=== PATIENT | male | born 2000 | race Caucasian/White ===

== ENCOUNTER 2023-01-01 21:44 | Emergency (ER) | payer MEDICAID ==
[~2023-01-01] VITALS: Ht 180.3 cm; Wt 79.4 kg
[2023-01-01 21:55] VITALS: BP 160/88; PULSE 90; RESP 18; TEMP 97.4; O2SAT 100
[2023-01-01 22:11] VITALS: BP 122/75; PULSE 79; RESP 15
[2023-01-01 22:36] VITALS: O2SAT 96
[2023-01-01 22:57] LABS: BASOPHILS # (AUTO) 0.1 K/uL (0.00-0.22); BASOPHILS % (AUTO) 0.8 % (0.0-2.0); EOSINOPHILS # (AUTO) 0.2 K/uL (0-0.4); HEMOGLOBIN 15.1 g/dL (12.0-18.0); LYMPHOCYTES # (AUTO) 1.8 K/uL (2.0-11.5); LYMPHOCYTES % (AUTO) 25.9 % (20.5-51.1); MEAN CORPUSCULAR HEMOGLOBIN 31 pg (27-31); MEAN CORPUSCULAR HGB CONC 34 g/dL (33-37); MEAN CORPUSCULAR VOLUME 90.4 fL (80-94); MONOCYTES # (AUTO) 0.7 K/uL (0.8-1.0); MONOCYTES % (AUTO) 9.6 % (1.7-9.3); NEUTROPHILS # (AUTO) 4.1 K/uL (1.8-7.7); NEUTROPHILS % (AUTO) 60.7 % (42.2-75.2); PLATELET COUNT (AUTO) 246 K/uL (140-450); RED BLOOD CELL COUNT(AUTO) 4.86 MIL/uL (4.20-6.10); RED CELL DISTRIBUTION WIDTH 13.6 % (11.6-13.7); WHITE BLOOD COUNT (AUTO) 6.8 K/uL (4.8-10.8)
[2023-01-01 23:24] LABS: ALANINE AMINOTRANSFERASE 50 U/L (12-78); ALBUMIN 3.7 g/dL (3.4-5.0); ALKALINE PHOSPHATASE 89 U/L (50-136); ANION GAP 11.7 (8-16); ASPARTATE AMINOTRANSFERASE 18 U/L (15-37); CALCIUM 8.4 mg/dL (8.5-10.1); CARBON DIOXIDE 29.9 mmol/L (21-32); CHLORIDE 104 mmol/L (98-107); CREATININE 1.1 mg/dL (0.6-1.3); GFR ARICAN-AMERICAN 106 mL/min (>90); GFR NON ARICAN-AMERICAN 87 mL/min (>90); GLUCOSE 112 mg/dL (74-106); POTASSIUM 3.6 mmol/L (3.5-5.1); SODIUM SERUM 142 mmol/L (136-145); TOTAL BILIRUBIN 0.3 mg/dL (0.0-1.0); TOTAL PROTEIN, SERUM 6.8 g/dL (6.4-8.2); UREA NITROGEN, BLOOD 10 mg/dL (7-18)
== END 2023-01-02 01:13 | disposition home or self-care (01) ==
LOC: MED 21:44
DX: R07.9 Chest pain, unspecified (principal); F12.90 Cannabis use, unspecified, uncomplicated; Z79.899 Other long term (current) drug therapy
CPT/HCPCS: 36415; 71045; 80053; 84484; 85025; 85379; 93005; 99285; Q0092

== ENCOUNTER 2023-12-15 20:32 | Emergency (ER) | payer SELFPAY ==
[~2023-12-15] VITALS: Ht 180.3 cm; Wt 88.5 kg
[2023-12-15 20:53] VITALS: BP 122/51; PULSE 74; RESP 16; TEMP 98; O2SAT 97
[2023-12-15 21:25] LABS: APPEARANCE,URINE CLEAR (CLEAR); BILIRUBIN,URINE NEGATIVE (NEGATIVE); BLOOD, URINE NEGATIVE (NEGATIVE); COLOR,URINE YELLOW (YELLOW); LEUKOCYTE ESTERASE ,URINE NEGATIVE (NEGATIVE); NITRITE, URINE NEGATIVE (NEGATIVE); PROTEIN,URINE NEGATIVE (NEGATIVE); UGLUCOSE NEGATIVE (NEGATIVE); UROBILINOGEN,URINE 0.2 EU/dL (0.2 - 1)
[2023-12-15] MEDS ORDERED: cefTRIAXone 500 MG VIAL ONE (21:31)
[2023-12-15] MEDS ORDERED: LIDOCAINE MPF 1% 5 ML ONE (21:32)
[2023-12-15] MEDS: DOXYCYCLINE 100 MG CAP PO ONE (21:34)
[2023-12-15 21:35] LABS: BACTERIA,URINE OCCASSIONAL /HPF (None Seen); MUCUS,URINE 1+ /LPF (None Seen); RBC,URINE 0-5 /HPF (0-5); SQUAMOUS EPITHELIAL CELL,UR 0-3 (FEW) /LPF (0-3 (FEW)); WBC,URINE 0-5 /HPF (0-5)
[2023-12-15] MEDS: cefTRIAXone 500 MG in LIDOCAINE MPF 1% 1 ML IM ONE (21:35)
[2023-12-15] MEDS ORDERED: DOXY-690 PO (21:36)
== END 2023-12-15 21:40 | disposition home or self-care (01) ==
LOC: MED 20:32
DX: N34.2 Other urethritis (principal); Z79.2 Long term (current) use of antibiotics
CPT/HCPCS: 81001; 87491; 96372; 99283; J0696; J2001